=== PATIENT | female | born 1975 | race Hispanic/Latino ===

== ENCOUNTER 2016-08-31 11:17 | Outpatient (CLI) | payer OTHER ==
--- NOTE | 2016-08-31 12:43 | Ultrasound Report ---
BILATERAL DIGITAL DIAGNOSTIC MAMMOGRAM with CAD and BILATERAL BREAST ULTRASOUND: 08/31/16 11:49:00 CLINICAL: A left palpable lump. COMPARISON:None. These are baseline studies. FINDINGS: The breasts are heterogeneously dense, which may obscure small masses.Circumscribed densities in the outer right breast on the CC view are suggestive of cysts.No definite mammographic mass to correlate with a left upper outer palpable marker. Ultrasound of the upper outer right breast was performed and demonstrated multiple benign cysts. The largest measures 3.3 x 3.0 x 1.4 cm at 11 o'clock 6 cm from the nipple. A cyst at 12 o'clock 3 cm from the nipple measures 2.1 x 1.1 x 1.7 cm and a cyst at 10:30 o'clock centimeters from the nipple measures 1.3 x 0.6 x 0.9 cm. A cystic cluster at 9 o'clock 4 cm from the nipple measures 1.1 x 0.7 x 1.0 cm. No solid mass or shadowing. Ultrasound of the upper outer left breast was performed and demonstrated three benign cysts. The largest measures 3.2 x 1 point, 2.6 cm and is located at 2 o'clock 7 cm from the nipple. A cyst at 12 o'clock 5 cm from the nipple measures 2.5 x 1.9 x 2.9 cm. A cyst at 12 o'clock 4 cm from the nipple measures 1.1 x 0.9 x 0.7 cm. No solid mass or shadowing. IMPRESSION: Bilateral benign cysts and no suspicious finding. BI-RADS CATEGORY: 2 -- Benign RECOMMENDATION: Clinical follow-up and routine screening in one year. Cyst aspiration may be beneficial to relieve pain or tenderness. ACR BI-RADS MAMMOGRAPHIC CODES: 0 = Needs additional imaging evaluation; 1 = Negative; 2 = Benign; 3 = Probably benign; 4 = Suspicious; 5 = Malignant; 6 = Known biopsy-proven malignancy COMMENT: 1. Dense breast tissue, i.e., adenosis, fibrocystic changes, etc., may obscure an underlying neoplasm. 2. Approximately 10% of cancers are not detected with mammography. 3. A negative mammography report should not delay biopsy if a clinically suspicious mass is present. COMMENT: Patient follow-up letters are generated by our [employer] application.
== END 2016-08-31 11:18 | disposition home or self-care (01) ==
LOC: SPVWC 11:17
PROVIDERS: ATTEND Obstetrics & Gynecology
DX: N60.01 Solitary cyst of right breast (principal); N60.02 Solitary cyst of left breast; N63 Unspecified lump in breast
CPT/HCPCS: 76642; G0204; 77066